=== PATIENT | female | born 1940 | race Caucasian/White ===

== ENCOUNTER 2018-01-24 12:07 | Outpatient (CLI) | payer MEDICARE, OTHER | END 2018-01-24 12:08 | disposition home or self-care (01) | LOC: BICMAMMO 12:07 | PROVIDERS: ATTEND Internal Medicine | DX: Z12.31 Encounter for screening mammogram for malignant neoplasm of breast (principal) | CPT/HCPCS: 77063; 77067 ==

== ENCOUNTER 2019-02-21 11:57 | Outpatient (CLI) | payer MEDICARE, OTHER ==
--- NOTE | 2019-02-21 13:07 | MMO ---
Bilateral MAMMO Bilat Screen [facility]. CLINICAL HISTORY: Patient is 78 years old and is seen for screening. The patient has no family history of breast cancer. The patient has no personal history of cancer. VIEWS: The views performed were: bilateral craniocaudal with tomosynthesis and bilateral mediolateral oblique with tomosynthesis. FILMS COMPARED: The present examination has been compared to prior imaging studies performed at [facility] on 11/26/2014, 12/31/2015, 01/12/2017 and 01/24/2018. This study has been interpreted with the assistance of computer-aided detection. MAMMOGRAM FINDINGS: There are scattered fibroglandular densities. There are benign appearing and vascular calcifications seen in both breasts. There are no suspicious masses, suspicious calcifications, or new areas of architectural distortion. IMPRESSION: THERE IS NO MAMMOGRAPHIC EVIDENCE OF MALIGNANCY. A ROUTINE FOLLOW-UP MAMMOGRAM IN 1 YEAR IS RECOMMENDED. THE RESULTS OF THIS EXAM WERE SENT TO THE PATIENT. ACR BI-RADS Category 2 - Benign finding MAMMOGRAPHY NOTE: 1. A negative mammogram report should not delay a biopsy if a dominant of clinically suspicious mass is present. 2. Approximately 10% to 15% of breast cancers are not detected by mammography. 3. Adenosis and dense breasts may obscure an underlying neoplasm. Reported by: ANGEL ALLAN MD Electonically Signed: [id number]
== END 2019-02-21 11:58 | disposition home or self-care (01) ==
LOC: BICMAMMO 11:57
PROVIDERS: ATTEND Internal Medicine
DX: Z12.31 Encounter for screening mammogram for malignant neoplasm of breast (principal)
CPT/HCPCS: 77063; 77067

== ENCOUNTER 2020-02-26 15:00 | Outpatient (CLI) | payer MEDICARE, OTHER ==
--- NOTE | 2020-02-26 16:43 | MMO ---
Bilateral MAMMO Bilat Screen [facility]. CLINICAL HISTORY: Patient is 80 years old and is seen for screening. The patient has no family history of breast cancer. The patient has no personal history of cancer. VIEWS: The views performed were: bilateral craniocaudal with tomosynthesis and bilateral mediolateral oblique with tomosynthesis. FILMS COMPARED: The present examination has been compared to prior imaging studies performed at [facility] on 12/31/2015, 01/12/2017, 01/24/2018 and 02/21/2019. This study has been interpreted with the assistance of computer-aided detection. MAMMOGRAM FINDINGS: There are scattered fibroglandular densities. There are stable calcifications seen in both breasts. There are no suspicious masses, suspicious calcifications, or new areas of architectural distortion. IMPRESSION: THERE IS NO MAMMOGRAPHIC EVIDENCE OF MALIGNANCY. A ROUTINE FOLLOW-UP MAMMOGRAM IN 1 YEAR IS RECOMMENDED. THE RESULTS OF THIS EXAM WERE SENT TO THE PATIENT. ACR BI-RADS Category 2 - Benign finding MAMMOGRAPHY NOTE: 1. A negative mammogram report should not delay a biopsy if a dominant of clinically suspicious mass is present. 2. Approximately 10% to 15% of breast cancers are not detected by mammography. 3. Adenosis and dense breasts may obscure an underlying neoplasm. Reported by: JORDYN MCNAIR MD Electonically Signed: [id number]
== END 2020-02-26 15:01 | disposition home or self-care (01) ==
LOC: BICMAMMO 15:00
PROVIDERS: ATTEND Internal Medicine
DX: Z12.31 Encounter for screening mammogram for malignant neoplasm of breast (principal)
CPT/HCPCS: 77063; 77067

== ENCOUNTER 2020-08-26 14:45 | Outpatient (CLI) | payer MEDICARE, OTHER | END 2020-08-26 14:46 | disposition home or self-care (01) | LOC: BICMAMMO 14:45 | PROVIDERS: ATTEND Internal Medicine | DX: M81.0 Age-related osteoporosis without current pathological fracture (principal) | CPT/HCPCS: 77080 ==

== ENCOUNTER 2021-03-12 11:58 | Outpatient (CLI) | payer MEDICARE, OTHER | END 2021-03-12 11:59 | disposition home or self-care (01) | LOC: BICMAMMO 11:58 | PROVIDERS: ATTEND Internal Medicine | DX: Z12.31 Encounter for screening mammogram for malignant neoplasm of breast (principal); Z80.3 Family history of malignant neoplasm of breast | CPT/HCPCS: 77063; 77067 ==

== ENCOUNTER 2023-02-23 09:41 | Outpatient (CLI) | payer MEDICARE, OTHER | END 2023-02-23 09:42 | disposition home or self-care (01) | LOC: BICMAMMO 09:41 | PROVIDERS: ATTEND Internal Medicine | DX: Z12.31 Encounter for screening mammogram for malignant neoplasm of breast (principal); Z80.3 Family history of malignant neoplasm of breast | CPT/HCPCS: 77063; 77067 ==

== ENCOUNTER 2023-10-17 13:14 | Emergency (ER) | payer MEDICARE, OTHER ==
[2023-10-17 13:51] LABS: #Basophils 0.07 10x3/uL (0.0-0.2); %Eosinophils 3.4 % (0.0-10.0); %Lymphocytes 22.5 % (21.0-51.0); %Monocytes 6.9 % (0.0-10.0); %Neutrophils 65.8 % (42.0-75.0); Hematocrit 36.6 % (36.0-47.0); Hemoglobin 11.9 g/dL (12.0-16.0); Mean Corpuscular HGB CONC 32.5 g/dL (32.0-36.0); Mean Corpuscular Hemoglobin 30.5 pg (27.0-31.0); Mean Corpuscular Volume 93.8 fL (78.0-98.0); Platelet Count 269 10x3/uL (130-400); RBC Distribution Width 13.9 % (11.5-14.5)
[2023-10-17 14:04] LABS: Prothrombin Time 13.1 sec (12.0-14.7)
[2023-10-17 14:05] LABS: PTT 31.3 sec (22.9-36.1)
[2023-10-17 14:07] LABS: D-Dimer Test 1.62 mcg/mL (0.27-0.43)
[2023-10-17 14:26] LABS: ALT (SGPT) 13 U/L (8-55); AST (SGOT) 17 U/L (5-34); Alkaline Phosphatase 43 U/L (40-110); Anion Gap 15 mmol/L (10-20); BUN (Urea Nitrogen) 19 mg/dL (9.8-20.1); Bilirubin, Total 0.5 mg/dL (0.2-1.2); Calc. Creatinine Clearance 0 mL/min (70-130); Calcium 9.5 mg/dL (7.8-10.44); Carbon Dioxide 22 mmol/L (23-31); Chloride 106 mmol/L (98-107); Estimated GFR 54; Globulin 3.4 g/dL (2.4-3.5); Glucose 145 mg/dL (83-110); Potassium 4.1 mmol/L (3.5-5.1); Protein, Total 7.4 g/dL (5.8-8.1); Sodium 139 mmol/L (136-145)
== END 2023-10-17 15:02 | disposition home or self-care (01) ==
LOC: ERS 13:14
DX: M25.472 Effusion, left ankle (principal); E03.9 Hypothyroidism, unspecified; Z79.899 Other long term (current) drug therapy; R60.0 Localized edema; M79.662 Pain in left lower leg; M79.89 Other specified soft tissue disorders
CPT/HCPCS: 36415; 80053; 85025; 85379; 85610; 85730

== ENCOUNTER 2023-10-28 08:24 | Emergency (ER) | payer MEDICARE, OTHER | END 2023-10-28 10:02 | disposition home or self-care (01) | LOC: ERS 08:24 | DX: M25.562 Pain in left knee (principal); E03.9 Hypothyroidism, unspecified; Z79.899 Other long term (current) drug therapy; M79.605 Pain in left leg | CPT/HCPCS: 36415; 85379 ==

== ENCOUNTER 2024-03-06 11:32 | Outpatient (CLI) | payer MEDICARE, OTHER | END 2024-03-06 11:33 | disposition home or self-care (01) | LOC: BICMAMMO 11:32 | PROVIDERS: ATTEND Internal Medicine | DX: Z12.31 Encounter for screening mammogram for malignant neoplasm of breast (principal); Z80.3 Family history of malignant neoplasm of breast | CPT/HCPCS: 77063; 77067 ==

== ENCOUNTER 2024-04-04 10:43 | Outpatient (CLI) | payer MEDICARE, OTHER | END 2024-04-04 10:44 | disposition home or self-care (01) | LOC: BICMAMMO 10:43 | PROVIDERS: ATTEND Internal Medicine | DX: M81.0 Age-related osteoporosis without current pathological fracture (principal); M85.88 Other specified disorders of bone density and structure, other site | CPT/HCPCS: 77080 ==

== ENCOUNTER 2025-03-07 09:59 | Outpatient (CLI) | payer MEDICARE, OTHER | END 2025-03-07 10:00 | disposition home or self-care (01) | LOC: BICMAMMO 09:59 | PROVIDERS: ATTEND Internal Medicine | DX: Z12.31 Encounter for screening mammogram for malignant neoplasm of breast (principal); Z80.3 Family history of malignant neoplasm of breast | CPT/HCPCS: 77063; 77067 ==